=== PATIENT | female | born 2005 | race Two or more races ===

== ENCOUNTER 2023-05-07 19:03 | Emergency (ER) | payer OTHER ==
[~2023-05-07] VITALS: Ht 157.5 cm; Wt 69.9 kg
== END 2023-05-07 23:02 | disposition home or self-care (01) ==
LOC: ER 19:03 → EMR PED 19:03
DX: B27.80 Other infectious mononucleosis without complication (principal); R59.0 Localized enlarged lymph nodes; J03.90 Acute tonsillitis, unspecified; B17.8 Other specified acute viral hepatitis